=== PATIENT | female | born 1965 | race Caucasian/White ===

== ENCOUNTER 2020-11-06 10:03 | Inpatient (IN) ==
[2020-11-06 10:32] LABS: Basophils % 0.3 %; Eosinophils # 0.1 K/mcL (0.0-0.6); Eosinophils % 0.9 %; Hematocrit 37.4 % (35.3-44.9); Hemoglobin 11.4 g/dL (11.5-15.4); Immature Granulocytes % 0.4 % (0-4); Lymphocytes # 2.4 K/mcL (0.6-4.6); Lymphocytes % 31.5 %; Mean Corpuscular HGB Conc 30.5 g/dL (31.6-35.5); Mean Corpuscular Hemoglobin 25.1 pg (28.0-33.3); Mean Corpuscular Volume 82.2 fL (83.0-100.0); Mean Platelet Volume 9.8 fL (9.4-12.4); Monocytes # 0.5 K/mcL (0.0-1.3); Monocytes % 6.7 %; Neutrophils # 4.7 K/mcL (1.6-8.9); Platelet Count 320 K/mcL (140-400); Red Blood Count 4.55 M/mcL (3.82-4.97); Red Cell Distribution Width 14.1 % (11.5-14.5); Segmented Neutrophils % 60.2 %; White Blood Count 7.7 K/mcL (4.3-11.1)
[2020-11-06 10:38] LABS: Amphetamine Screen,Urine Negative ng/mL (Cutoff=1000); Barbiturate Screen,Urine Negative ng/mL (Cutoff=200); Benzodiazepines Screen,Urine Negative ng/mL (Cutoff=200); Cannabinoid Screen,Urine Negative ng/mL (Cutoff = 50); Cocaine Screen,Urine Negative ng/mL (Cutoff= 300); Opiate Screen,Urine Negative ng/mL (Cutoff=300); Phencyclidine Screen,Urine Negative ng/mL (Cutoff=25)
[2020-11-06 10:45] LABS: Bacteria,Urine Few per hpf (None-Few); Bilirubin,Urine Negative (Negative); Blood,Urine Moderate (Negative); Clarity,Urine Clear (Clear); Color,Urine Light-Yellow (Yellow); Glucose,Urine (UA) Normal (Normal); Ketones,Urine Negative (Negative); Leukocyte Esterase,Urine Trace (Negative); Mucus,Urine Few per lpf (None-Few); Nitrite,Urine Negative (Negative); Protein,Urine Negative (Neg-Trace); RBC,Urine 0-3 per hpf (0-3); Specific Gravity,Urine 1.015 (1.010-1.025); Squamous Epithelial Cell,Urine Few per hpf (None-Few); Urobilinogen,Urine Normal (Normal); WBC,Urine 0-3 per hpf (0-3)
[2020-11-06 10:52] LABS: Acetaminophen < 10 mcg/mL (10-20); BUN/Creatinine Ratio 20 (6-26); Blood Urea Nitrogen 17 mg/dL (6-20); Calcium 8.8 mg/dL (8.6-10.3); Carbon Dioxide 21 mEq/L (23-29); Chloride 111 mEq/L (98-107); Chol/HDL Ratio 5.5 (0-4.9); Cholesterol 202 mg/dL (< 200); Ethanol < 10 mg/dL (Less than 10); Glucose 95 mg/dL (70-105); HDL Cholesterol 37 mg/dL (40-59); LDL Cholesterol,Calculated 120 mg/dL (< 100); Osmolality,Calculated 291 (280-300); Potassium 3.7 mEq/L (3.5-5.1); Salicylate < 2.5 mg/dL (15.0-30.0); Sodium 140 mEq/L (136-145); Triglycerides 223 mg/dL (< 150); eGFR For African Americans > 60 (> 60); eGFR For Non-African Americans > 60 (> 60)
[2020-11-06 11:49] LABS: Estimated Average Glucose 94 mg/dl; Hemoglobin A1C 4.9 %
[2020-11-06] MEDS ORDERED: haloperidoL 5 MG TABLET PO PRN (12:32)
[2020-11-06] MEDS ORDERED: *HR* LORazepam 1 MG TABLET PO PRN (12:32)
[2020-11-06] MEDS ORDERED: *HR* LORazepam 2 MG/ML VIAL IM PRN (12:32)
[2020-11-06] MEDS ORDERED: Haloperidol Lactate 5 MG/ML VIAL IM PRN (12:32)
[2020-11-06] MEDS ORDERED: hydrOXYzine pamoate 25 MG CAPSULE PO PRN (12:32)
[2020-11-06] MEDS ORDERED: MOM Conc 10 ML UD.LIQ PO PRN (12:32)
[2020-11-06] MEDS ORDERED: traZODone 50 MG TABLET PO PRN (12:32)
[2020-11-06] MEDS ORDERED: Mag Hydrox/Al Hydrox/Simeth 30 ML UDC PO PRN (12:32)
[2020-11-06] MEDS ORDERED: Acetaminophen 325 MG TABLET PO PRN (12:32)
[2020-11-06] MEDS: Gabapentin 300 MG CAPSULE PO SCH (20:52)
[2020-11-06] MEDS: Topiramate 25 MG TABLET PO SCH (20:53)
[2020-11-06] MEDS: Topiramate 100 MG TABLET PO SCH (20:53)
[2020-11-07] MEDS: Topiramate 100 MG TABLET PO SCH ×2 (08:25→21:08)
[2020-11-07] MEDS: Topiramate 25 MG TABLET PO SCH ×2 (08:25→21:07)
[2020-11-07] MEDS: Gabapentin 300 MG CAPSULE PO SCH ×2 (08:26→21:07)
[2020-11-07] MEDS ORDERED: Mirtazapine 15 MG TABLET PO PRN (11:12)
[2020-11-07] MEDS: Ibuprofen 400 MG TABLET PO PRN (11:42)
[2020-11-07] MEDS: FLUoxetine 20 MG CAPSULE PO SCH (14:36)
[2020-11-08] MEDS: FLUoxetine 20 MG CAPSULE PO SCH (10:54)
[2020-11-08] MEDS: Gabapentin 300 MG CAPSULE PO SCH ×2 (10:55→20:12)
[2020-11-08] MEDS: Topiramate 25 MG TABLET PO SCH ×2 (10:55→20:12)
[2020-11-08] MEDS: Topiramate 100 MG TABLET PO SCH ×2 (10:55→20:12)
[2020-11-08] MEDS: Ibuprofen 400 MG TABLET PO PRN ×2 (10:56→20:14)
[2020-11-09] MEDS: Topiramate 100 MG TABLET PO SCH ×2 (09:33→20:56)
[2020-11-09] MEDS: Gabapentin 300 MG CAPSULE PO SCH ×2 (09:33→20:56)
[2020-11-09] MEDS: Topiramate 25 MG TABLET PO SCH ×2 (09:34→20:57)
[2020-11-09] MEDS: FLUoxetine 20 MG CAPSULE PO SCH (09:34)
[2020-11-09] MEDS: Ibuprofen 400 MG TABLET PO PRN (14:37)
[2020-11-10] MEDS: Topiramate 25 MG TABLET PO SCH (08:45)
[2020-11-10] MEDS: Gabapentin 300 MG CAPSULE PO SCH (08:46)
[2020-11-10] MEDS: Topiramate 100 MG TABLET PO SCH (08:46)
[2020-11-10] MEDS: FLUoxetine 20 MG CAPSULE PO SCH (08:46)
[2020-11-10 08:47] VITALS: BP 107/55
== END 2020-11-10 14:05 | disposition home or self-care (01) | DRG 751 ==
LOC: EMEROOARM 10:03 → 1ANU 12:30
PROVIDERS: ADMIT Psychiatry & Neurology Psychiatry; ATTEND Psychiatry & Neurology Psychiatry